=== PATIENT | female | born 1955 | race Caucasian/White ===

== ENCOUNTER 2017-07-27 12:43 | Observation (INO) | payer MEDICAID ==
--- NOTE | 2017-07-23 19:49 | HP ---
CC: Dr. Oleg Dixon; Dr. Diann Briggs * ADMISSION HISTORY AND PHYSICAL: DATE OF ADMISSION: Will be 07/27/17 ATTENDING SURGEON: Dr. Pamela Hawkins * (DICTATED BY EDIN PETERSEN) CHIEF COMPLAINT: Left breast pain; history of right breast cancer. HISTORY OF PRESENT ILLNESS: This is a 62-year-old patient who underwent right mastectomy with sentinel lymph node biopsy in [address] Hawkins following a lumpectomy for an ER/AZ positive, HER2/ella negative right breast cancer (no residual invasive carcinoma seen on mastectomy specimen and a single sentinel lymph node was negative for metastatic disease). The patient did not require any adjuvant therapy other than hormonal, which she currently continues ( anastrozole as directed by Dr. Dixon). The patient states that over the last 6 months, she has experienced pain in the left breast. This occurs in 2 forms. First, she experiences pain in a more or less ongoing basis in the area of the left inframammary fold. She describes this as a burning sensation, which is present most of the time. 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 This will occur 3 to 4 times weekly and has remained approximately the same in terms of frequency and intensity over the last 6 months. She did undergo mammogram and ultrasound of the left breast on 06/26/17 showing tiny microcalcifications in the left breast, a biopsy clip and a tiny inframammary lymph node. There were no concerns in terms of suspicious changes. The patient has not noticed any other changes in the left breast, i.e. , skin or nipple changes, nipple discharge, or lumps. The patient was seen in the office by Dr. Hawkins on 07/17/17 at which time exam was notable for surgical absence of the right breast without any evidence of recurrence. Left breast was without any skin or nipple changes or palpable lumps. There is no palpable cervical, supraclavicular, or axillary lymphadenopathy. The patient also told Dr. Hawkins that if she had considered the option 2 years ago, she would have undergone bilateral mastectomy at that time. There is a positive family history of breast cancer in her mother diagnosed at age 35 and treated with mastectomy. Her mother is still living at age 89. There is no additional family history of breast or ovarian cancer. There has not been any genetic testing as far as the patient is aware. Dr. Hawkins discussed surgical options with the patient including the indications, risks, benefits, and alternatives. The patient's right mastectomy in 2014 was complicated by postoperative wound infection and nonhealing wound requiring hyperbaric oxygen therapy. The patient understands all of these issues and would like to proceed as scheduled with left mastectomy. Dr. Hawkins did discuss possible reconstruction options with the patient. She is not interested in reconstruction at the present time. PAST MEDICAL HISTORY: Obesity, GERD, breast cancer as noted above (neuropathic pain related to right mastectomy, well controlled at present with gabapentin), joint pains (which she attributes to the anastrozole). PAST SURGICAL HISTORY: Previous surgeries include right mastectomy, prior left breast biopsy for benign disease in 2011, 2 right eye surgeries when she was younger, lumbar laminectomy, laparoscopic cholecystectomy, and tubal ligation. No reported surgical or anesthesia problems other than noted above. CURRENT MEDICATIONS: 1. Anastrozole 1 mg once daily. 2. Gabapentin 100 mg b.i.d. 3. Omeprazole 40 mg daily. 4. Naproxen 220 mg b.i.d. p.r.n. for joint pain (does not use daily). 5. Multivitamin once daily. DRUG ALLERGIES: None known (the patient does have history of severe reaction to most adhesive tapes). FAMILY HISTORY: Positive for breast cancer in her mother as noted above. Father at age 70 with history of lung and stomach cancer. One sister living with history of colon cancer. No family history of anesthesia problems, bleeding, or clotting disorders. SOCIAL HISTORY: The patient currently has 2 grandchildren who live with her. She is accompanied by her friend today. She works 2 days a week as a hair or beauty salon manager. She is a lifetime nonsmoker and drinks on average 2 to 3 drinks per week. She denies any other drug use. REVIEW OF SYSTEMS: General: No recent constitutional symptoms or acute illnesses. She has gained approximately 45 pounds over the past 2 years since her mastectomy. She attributes this to the anastrozole. Cardiovascular: No history of hypertension, MT, or angina. She was evaluated by Dr. Currie approximately 2 years ago with no findings of active heart disease other than deconditioning. Respiratory: No history of asthma, chronic cough, or shortness of breath. GI: GERD symptoms well controlled with omeprazole. No lower GI symptoms. Last colonoscopy approximately 5 years ago and the patient believes she is due for routine screening in another year with no interval problems reported. : No problems reported. HOSE HANDLER: Pap smear and pelvic exam done this past month. No problems reported. Endocrine: No diabetes or thyroid dysfunction. Musculoskeletal: Multiple joint complaints, which she relates to the anastrozole and for which she uses naproxen p.r.n., but not daily. PHYSICAL EXAMINATION GENERAL: Well-nourished, obese female, in no acute distress. VITAL SIGNS: Height 5 feet 5 inches, weight 245 pounds by history, temperature 97.9, blood pressure 122/82, pulse 68, respirations 16. HEENT: Pupils equal, round, and reactive. EOMs intact. No conjunctival pallor. Oropharynx: Teeth in good repair. No intraoral lesions. NECK: No lymphadenopathy in the cervical or supraclavicular regions. LUNGS: Clear to auscultation. No rales or wheezes. HEART: Regular rate and rhythm. No murmur noted. BREASTS: (Per Dr. Hawkins's exam not repeated today). ABDOMEN: Soft, nontender to palpation. No palpable masses or organomegaly. BACK: No spinous process or CVA tenderness. RECTAL: Not done. GENITALIA: Not done. EXTREMITIES: No edema. NEUROLOGICAL: Grossly intact. SKIN: Warm and dry. No suspicious rashes or lesions. IMPRESSION: Left breast pain and personal history of right breast cancer. PLAN: Left mastectomy. EDIN PETERSEN [id number]/[facility] #: [id number] [facility] MEDICAL CENTERMaikol
[~2017-07-27 12:43] MED LIST: Buffered Lidocaine 0.9% SYRIN* 5 ML/SYR SYRINGE INTRADERM ONE; DiMENhydriNATE IV* 50 MG/ML VIAL IV PUSH PRN; Famotidine IV* 10 MG/ML 2 ML (20 mg) IV ONE; Morphine INJ* 2 MG/ML 1 ML CARPUJECT IV PRN; Ondansetron INJ* 2 MG/ML VIAL IV PRN; PROCHLORPERAZINE INJ 5 MG/ML 2 ML VIAL IV PRN; Scopolamine 1.5 mg* PATCH TRANSDERM PRN; fentaNYL* 50 MCG/ML 2 ML VIAL (100 MCG VIAL) IV PRN; oxyCODONE/Acetamin 5/325 MG* TAB PO PRN
[2017-07-27] MEDS ORDERED: Buffered Lidocaine 0.9% SYRIN* 5 ML/SYR SYRINGE ONE ×2 (12:51)
[2017-07-27] MEDS ORDERED: Famotidine IV* 10 MG/ML 2 ML (20 mg) ONE ×2 (12:52)
[2017-07-27] MEDS ORDERED: ceFAZolin 2 GM PREMIX (*) 2 GM/50 ML BAG IVPB ONE ×2 (12:52)
[2017-07-27] MEDS ORDERED: fentaNYL* 50 MCG/ML 2 ML VIAL (100 MCG VIAL) ONE ×2 (13:45)
[2017-07-27] MEDS ORDERED: KETAMINE HCL* 50 MG/ML 10 ML VIAL ONE ×2 (13:46)
[2017-07-27] MEDS ORDERED: Midazolam* 1 MG/ML 10 ML VIAL (10 MG) ONE ×2 (13:46)
--- OUTSIDE RECORDS SUMMARY | 2017-07-27 13:54 | XMS REPORT ---
:1955 External Reference #:[id number] Author Organization [employer] Address [address] [facility] [address] [place] [address] Phone [phone] Care Team Providers Name Role Phone Mealnie Briggs DO Primary Care Physician Unavailable Payers Type Date Identification Numbers Payment Provider Subscriber Medicaid Policy Number: [id number] Medicaid Deloris Perez Group Name: 1 1 [address] PayID: [id number] [place] [address] Problems Description No Information Family History Date Family Member(s) Problem(s) Comments General Heart Disease mother General Breast Cancer mother General Seizure Disorder mother General Stomach Cancer father Father Stomach Cancer Father due to Cancer () - 1986 at age 70 Mother Heart Disease Mother Hypothyroidism Not sure if it is hyperthyroidism or hypothyroidism Mother Stroke Mother Breast Cancer Siblings Many 4 brothers, 1 brother had open heart surgery 1 sister had colon cancer 2 years ago All 5 siblings have hypertension Social History Type Date Description Comments Marital Status Single Lives With Family 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 NO Do you have problems with snoring, day time fatigue? Tired a lot since breast surgery Allergies, Adverse Reactions, Alerts Date Description Reaction Status Severity Comments 12/23/2015 NKDA active Medications Medication Date Status Form Strength Qnty SIG Indications Ordering Provider Naproxen 03/08/ Active Tablets 500mg 60tabs 1 by mouth M25.561 2016 twice a day F as needed Timi, pain MD Diclofenac / Active Tablets DR 50mg take one Unknown Sodium 0000 tablet by mouth twice a day as needed Omeprazole / Active Capsules 20mg 1 by mouth Unknown 0000 DR every day Multi / Active Capsules daily Unknown Complete 0000 Anastrozole 00/ Active Tablets 1mg 1 by mouth Unknown 0000 every day Naproxen / Active Tablets 500mg 1 tablet with Unknown 0000 food by mouth twice a day Gabapentin / Active Capsules 100mg take 1 Unknown 0000 capsule by mouth at night for 1 week then 1 by mouth twice daily ongoing Vitamin E / Hx Capsules 100Unit occasionally Unknown 0000 - 2015 Vitamin B-12 / Hx Tablets 1000mcg 1 by mouth Unknown 0000 - every day 2015 Tramadol HCL / Hx Tablets 50mg 1-2 tablets Unknown 0000 - every 6 hours 08/08/ as needed 2016 Medications Administered in Office Medication Date Status Form Strength Qnty SIG Indications Ordering Provider Depomedrol Administered Injection Omar F 40MG 017 MD Timi Depomedrol Administered Injection Francis Jimenes, 40MG 016 M.D. Vital Signs Date Vital Result Comment 07/23/2017 Heart Rate 68 /min BP Systolic 122 mmHg BP Diastolic 82 mmHg Respiratory Rate 16 /min Body Temperature 97.9 F 07/17/2017 Weight 245.00 lb Heart Rate 72 /min BP Systolic 134 mmHg BP Diastolic 80 mmHg Respiratory Rate 16 /min Body Temperature 97.7 F 03/08/2017 Height 65 inches 5'5" Weight 245.00 lb BP Systolic 136 mmHg BP Diastolic 83 mmHg Respiratory Rate 16 /min Pain Level 7 BMI (Body Mass Index) 40.8 kg/m2 06/23/2016 Height 65 inches 5'5" Weight 242.00 lb with shoes Heart Rate 62 /min BP Systolic Sitting 118 mmHg left arm, large cuff BP Diastolic Sitting 80 mmHg left arm, large cuff BP Systolic Standing 116 mmHg left arm, large cuff BP Diastolic Standing 80 mmHg left arm, large cuff Respiratory Rate 16 /min BMI (Body Mass Index) 40.3 kg/m2 Ejection Fraction 60-65% 06/13/16 06/06/2016 Height 65 inches 5'5" Weight 236.50 lb with flip flops Heart Rate 78 /min BP Systolic Sitting 128 mmHg LA lrg cuff BP Diastolic Sitting 70 mmHg LA lrg cuff BP Systolic Standing 126 mmHg LA lrg cuff BP Diastolic Standing 72 mmHg LA lrg cuff Respiratory Rate 16 /min BMI (Body Mass Index) 39.4 kg/m2 01/12/2016 Height 65 inches 5'5" Weight 226.00 lb Heart Rate 66 /min BP Systolic 119 mmHg BP Diastolic 69 mmHg BMI (Body Mass Index) 37.6 kg/m2 12/23/2015 Height 65 inches 5'5" Weight 226.00 lb Pain Level 10 BMI (Body Mass Index) 37.6 kg/m2 Results Description No Information Procedures Date CPT Code Description Status 06/26/2017 Mammogram Completed 06/26/2017 Bone Mineral Density Test Completed 03/08/201783255 Inject/Drain Joint/Bursa Major Completed 06/15/2016 38600 Stress ECHO Interpretation/Report Hospital Completed 06/15/2016 97413 Treadmill Interp/Report Only Completed 06/15/2016 39523 Stress Test Supervsn W/Out I/R Completed 06/13/2016 80642 ECHO Transthoracic, Real-Time 2D With Doppler And Color Completed Flow 06/06/2016 91149 EKG Tracing & Interpretation Completed 12/23/2015 78679 Inject/Drain Joint/Bursa Major Completed 09/01/2015 09147 Hyperbaric Oxygen Therapy By Physician Completed 08/31/2015 85029 Hyperbaric Oxygen Therapy By Physician Completed 08/26/2015 51712 Hyperbaric Oxygen Therapy By Physician Completed 08/18/2015 67848 Hyperbaric Oxygen Therapy By Physician Completed 08/17/2015 82163 Debridement Skin,& sq Tissue Completed 08/17/2015 01357 Hyperbaric Oxygen Therapy By Physician Completed 08/16/2015 97468 Hyperbaric Oxygen Therapy By Physician Completed 08/12/2015 01619 Hyperbaric Oxygen Therapy By Physician Completed 08/11/2015 28451 Hyperbaric Oxygen Therapy By Physician Completed 08/10/2015 28585 Hyperbaric Oxygen Therapy By Physician Completed 08/05/2015 86838 Hyperbaric Oxygen Therapy By Physician Completed 08/05/2015 32080 Debridement Skin,& sq Tissue Completed 08/04/2015 62951 Hyperbaric Oxygen Therapy By Physician Completed 08/03/2015 84034 Hyperbaric Oxygen Therapy By Physician Completed 08/02/2015 91546 Hyperbaric Oxygen Therapy By Physician Completed 07/28/2015 99869 Debridement Skin,& sq Tissue Completed 07/21/2015 29473 Debridement Skin,& sq Tissue Completed 07/14/2015 52723 Debridement Skin,& sq Tissue Completed 06/18/2015 27129 Mastectomy Simple Complete Completed Encounters Type Date Location Provider CPT E/M Dx Office Visit 03/08/2017 [facility] Omar Capellan, 70090 M25.561 1:00p Of Viridiana RICARDO Office Visit 06/28/2016 [facility] Of Oleg Dixon M.D. 58630 Z85.3 9:00a [facility] [place] Z90.11 Z08 Office Visit 06/23/2016 9:00a [facility] Of Brenda Currie M.D. 30228 R06.02 [facility] C50.911 Z82.49 Office Visit 06/06/2016 2:00p [facility] Of Brenda Currie M.D. 00770 R06.02 [facility] Z82.49 R94.31 Office Visit 05/17/2016 9:00a [facility] Of Oleg Dixno M.D. 26356 Z90.11 [facility] [place] Z85.3 Z08 R06.02 Office Visit 01/12/2016 9:45a [facility] Of Francis Jimenes M.D. 72684 M65.811 C.M.A. Office Visit 12/23/2015 1:00p [facility] Of Francis Jimenes M.D. 28053 M65.811 C.M.A. M75.51 M75.21 Office Visit 09/08/2015 2:57p Wound Care Dameon Fiore 05278 T86.821 CummingsAlivia Medina M.D. Office Visit 08/31/2015 8:28a [facility] Dameon Fiore 88044 T86.821 Ariel Medina Z85.3 T81.30xA Office Visit 07/07/2015 4:07p [facility]on Fiore 32983 T81.30xA CummingsAlivia Medina M.D. Plan of Care Future Appointment(s):07/27/2017 2:00 pm - Bahgat Jael, PA at [facility]07/27/2017 2:00 pm - Pamela Hawkins MD at [facility]07/23/2017 - Glenroy Johnston, PAN64.4 EhmngqkpiqM87.3 Personal history of malignant neoplasm of safdimN73.818 Encounter for other preprocedural examination
--- OUTSIDE RECORDS SUMMARY | 2017-07-27 13:55 | XMS REPORT ---
:1955 External Reference #:[id number] Author Organization [employer] Address [address] 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 Vital Signs Date Vital Result Comment 07/17/2017 Weight 245.00 lb Heart Rate 72 [...] Completed 06/26/2017 Bone Mineral Density Test Completed 03/08/201758096 Inject/Drain Joint/Bursa Major Completed 06/15/2016 39872 Stress ECHO Interpretation/Report Hospital Completed 06/15/2016 25455 Treadmill Interp/Report Only Completed 06/15/2016 02226 Stress Test Supervsn W/Out I/R Completed 06/13/2016 38646 ECHO Transthoracic, Real-Time 2D With Doppler And Color Completed Flow 06/06/2016 41726 EKG Tracing & Interpretation Completed 12/23/201511129 Inject/Drain Joint/Bursa Major Completed 09/01/2015 19951 Hyperbaric Oxygen Therapy By Physician Completed 08/31/2015 34382 Hyperbaric Oxygen Therapy By Physician Completed 08/26/2015 24410 Hyperbaric Oxygen Therapy By Physician Completed 08/18/2015 15049 Hyperbaric Oxygen Therapy By Physician Completed 08/17/2015 32464 Debridement Skin,& sq Tissue Completed 08/17/2015 87407 Hyperbaric Oxygen Therapy By Physician Completed 08/16/2015 13732 Hyperbaric Oxygen Therapy By Physician Completed 08/12/2015 18325 Hyperbaric Oxygen Therapy By Physician Completed 08/11/2015 41257 Hyperbaric Oxygen Therapy By Physician Completed 08/10/2015 55785 Hyperbaric Oxygen Therapy By Physician Completed 08/05/2015 57414 Hyperbaric Oxygen Therapy By Physician Completed 08/05/2015 19430 Debridement Skin,& sq Tissue Completed 08/04/2015 52675 Hyperbaric Oxygen Therapy By Physician Completed 08/03/2015 55188 Hyperbaric Oxygen Therapy By Physician Completed 08/02/2015 15722 Hyperbaric Oxygen Therapy By Physician Completed 07/28/2015 40625 Debridement Skin,& sq Tissue Completed 07/21/2015 68435 Debridement Skin,& sq Tissue Completed 07/14/2015 58182 Debridement Skin,& sq Tissue Completed 06/18/2015 34262 Mastectomy Simple Complete Completed Encounters Type Date Location Provider CPT E/M Dx Office Visit 03/08/2017 [facility] Omar Capellan, 11846 M25.561 1:00p Of Viridiana RICARDO Office Visit 06/28/2016 [facility] Oleg Dixon M.D. 33630 Z85.3 9:00a [facility] Operations Specialist [facility] [place] Z90.11 Z08 Office Visit 06/23/2016 9:00a [facility] Of Brenda Currie M.D. 36170 R06.02 [facility] At [facility] C50.911 Z82.49 Office Visit 06/06/2016 2:00p [facility] Of Brenda Currie M.D. 22851 R06.02 [facility] Z82.49 R94.31 Office Visit 05/17/2016 9:00a [facility] Of Oleg Dixon M.D. 10853 Z90.11 [facility] [place] Z85.3 Z08 R06.02 Office Visit 01/12/2016 9:45a [facility] Of Francis Jimenes M.D. 55327 M65.811 C.M.A. Office Visit 12/23/2015 1:00p [facility] Of Francis Jimenes M.D. 27895 M65.811 C.M.A. M75.51 M75.21 Office Visit 09/08/2015 2:57p Wound Care Dameon Fiore 49218 T86.821 Hardwick-Mele Medina M.D. Office Visit 08/31/2015 8:28a [facility] At [facility] Dameon Fiore 55138 T86.821 Ariel Medina Z85.3 T81.30xA Office Visit 07/07/2015 4:07p [facility]ound Care Dameon Fiore 23142 T81.30xA Hardwick-Mele Medina M.D. Plan of Care Future Appointment(s):07/23/2017 10:00 am - EDIN Campbell at [facility]07/27/2017 2:00 pm - EDIN Carias at [facility]07/27/2017 2:00 pm - Pamela Hawkins MD at [facility]07/17/2017 - Pamela Hawkins MDN64.4 MastodyniaFollow up:for H &P and post op.
[2017-07-27] MEDS ORDERED: Bupivacaine 0.25% SDV* 30 ML ONE ×2 (14:12)
[2017-07-27] MEDS ORDERED: Ondansetron INJ* 2 MG/ML VIAL ONE ×2 (14:50)
[2017-07-27] MEDS ORDERED: Lidocaine 2% PF * 5 ML VIAL ONE ×4 (14:50→16:05)
[2017-07-27] MEDS ORDERED: Morphine INJ* 10 MG/ML 1 ML CARPUJECT ONE ×2 (14:50)
[2017-07-27] MEDS ORDERED: Ketorolac INJ* 30 MG/ML 1 ML VIAL ONE (14:50)
[2017-07-27] MEDS ORDERED: Propofol* 10 MG/ML 20 ML BTL IV PUSH ONE ×2 (14:50)
[2017-07-27] MEDS ORDERED: Dexamethasone IV* 4 MG/ML 1 ML (4 MG) ONE ×2 (14:50)
--- NOTE | 2017-07-27 16:21 | SURGPN ---
Brief Operative Note - Surgery Procedures: 07/27/17 Op Note Pre-op dx: left breast pain Post-op dx: same Procedure: left mastectomy Surgeon: Ross Asst: Jael Johnston Anesth: general EBL: 100 cc Complications: none SCDs on during surgery Abx: given pre-op Pt. tolerated procedure well and was transferred to in a stable condition. CLFoster
[2017-07-27] MEDS ORDERED: Acetaminophen TAB* 325 MG PO PRN (16:27)
[2017-07-27] MEDS ORDERED: traMADol TAB* 50 MG PO ONE (16:27)
[2017-07-27] MEDS ORDERED: Morphine INJ* 10 MG/ML 1 ML CARPUJECT IV PRN (16:28)
[2017-07-27] MEDS ORDERED: Morphine INJ* 4 MG/ML 1 ML CARPUJECT IV PRN (16:28)
[2017-07-27] MEDS ORDERED: Ondansetron INJ* 2 MG/ML VIAL IV PRN (16:31)
[2017-07-27] MEDS ORDERED: Gabapentin CAP(*) 100 MG PO ONE (21:00)
[2017-07-27] MEDS ORDERED: traMADol TAB* 50 MG ONE ×2 (21:22)
[2017-07-27] MEDS: traMADol TAB* 50 MG PO PRN (21:30)
[2017-07-28] MEDS: Gabapentin CAP(*) 100 MG PO SCH ×2 (00:14→09:18)
[2017-07-28] MEDS: traMADol TAB* 50 MG PO PRN (05:25)
[2017-07-28] MEDS ORDERED: Omeprazole CAP* 20 MG PO ONE (07:30)
[2017-07-28] MEDS ORDERED: Omeprazole CAP* 20 MG PO SCH (07:30)
[2017-07-28 07:40] VITALS: BP 122/46
--- NOTE | 2017-07-28 08:05 | PN ---
Progress Note - Progress Note Date of Service: 07/28/17 Note: Surgery Ms. Perez reports she has some pain with movement, but otherwise denies problems. She notes the incision is numb. Vital Signs 07/27/17 07/27/17 07/27/17 13:05 16:18 16:20 Temperature 97.7 F 97.2 F Pulse Rate 65 84 65 Respiratory 16 8 12 Rate Blood Pressure 127/68 144/67 134/79 (mmHg) O2 Sat by Pulse 98 95 100 Oximetry 07/27/17 07/27/17 07/27/17 16:25 16:30 16:45 Temperature Pulse Rate 66 65 64 Respiratory 14 14 12 Rate Blood Pressure 125/62 142/70 119/69 (mmHg) O2 Sat by Pulse 100 100 100 Oximetry 07/27/17 07/27/17 07/27/17 17:00 17:15 17:30 Temperature Pulse Rate 63 59 60 Respiratory 12 11 12 Rate Blood Pressure 123/77 116/74 115/58 (mmHg) O2 Sat by Pulse 100 100 100 Oximetry 07/27/17 07/27/17 07/27/17 17:45 18:00 18:34 Temperature Pulse Rate 60 58 Respiratory 12 12 16 Rate Blood Pressure 108/61 122/68 (mmHg) O2 Sat by Pulse 100 100 Oximetry 07/27/17 07/27/17 07/27/17 18:39 19:36 20:32 Temperature 97.3 F 98.2 F 98.2 F Pulse Rate 61 65 69 Respiratory 16 18 16 Rate Blood Pressure 139/64 132/66 133/53 (mmHg) O2 Sat by Pulse 99 97 97 Oximetry 07/27/17 07/27/17 07/27/17 21:30 21:51 22:32 Temperature 97.9 F Pulse Rate 65 Respiratory 18 18 16 Rate Blood Pressure 116/55 (mmHg) O2 Sat by Pulse 95 Oximetry 07/28/17 07/28/17 07/28/17 00:14 00:15 00:18 Temperature 97.8 F Pulse Rate 75 Respiratory 18 16 16 Rate Blood Pressure 117/52 (mmHg) O2 Sat by Pulse 97 Oximetry 07/28/17 07/28/17 07/28/17 03:13 03:56 05:25 Temperature 97.4 F Pulse Rate 69 Respiratory 18 18 18 Rate Blood Pressure 117/54 (mmHg) O2 Sat by Pulse 97 Oximetry 07/28/17 07/28/17 07:16 07:18 Temperature 98.2 F Pulse Rate 58 Respiratory 16 16 Rate Blood Pressure 122/46 (mmHg) O2 Sat by Pulse 96 Oximetry Mastectomy site: clean and dry, no signs infection; flaps viable, small, 1 cm, area in mid incision region which is dusky. MORGAN: 75/55 cc bloody fluid. Intake & Output 07/27/17 07/28/17 07/28/17 22:59 06:59 14:59 Intake Total 2575 1300 Output Total 775 1255 Balance 1800 45 Intake: IV Fluids 2049 940 LR 1999 940 NS 50ML, Cefazolin 2G 50 Oral 525 360 Output: MORGAN #1 75 55 Urine 700 1200 POD#1 s/p left mastectomy, doing well. Can go home if tolerates breakfast.
--- NOTE | 2017-07-28 13:51 | OP ---
CC: Dr. Melanie Briggs * DATE OF OPERATION: 07/27/17 - ROOM #340 DATE OF : 53 SURGEON: Pamela Hawkins MD. ASSISTANTS: EDIN Bates and EDIN Carias PRE-OP DIAGNOSIS: Left breast pain. POST-OP DIAGNOSIS: Left breast pain. OPERATIVE PROCEDURE: Left mastectomy. INDICATIONS: Ms. Perez is a 62-year-old woman who has a history of right breast cancer having undergone a right mastectomy in the past who developed left breast pain prompting the plan for her to seek left mastectomy as well. DESCRIPTION OF PROCEDURE: On the day of surgery, she was brought to the operating room, placed on the OR table in the supine position, and given general anesthesia. The left chest was prepped and draped in the usual sterile fashion. An incision was made in the superior breast encompassing the nipple- areolar complex and the subcutaneous tissue was divided with electrocautery superiorly to the clavicle, medially to the sternum, laterally to the latissimus dorsi muscle done inferiorly. An incision was made encompassing the nipple-areolar complex as well and then subcutaneous tissue was divided with electrocautery medially to the sternum, anteriorly to the rectus muscle and laterally to the latissimus dorsi muscle. The breast was then elevated off the chest wall using electrocautery. The vessels that were encountered were either ligated or cauterized. Once the breast was off the chest wall, it was marked in the usual fashion and handed off as a specimen. Hemostasis was assured and then additional skin was taken to allow the scar to lie flat against the chest wall as possible. A MORGAN drain was inserted through the stab wound in the skin and the anterior axillary line and secured to the chest wall with 3-0 Prolene stitch. The wound was closed with 2-0 Vicryl interrupted stitches in the subcutaneous tissue and the skin was closed with 3-0 Prolene running stitches. A dry, fluffy dressing was then applied. All sponge and instrument counts were correct. It should be mentioned that upon completion of closing prior to placing the dressing, local anesthetic was instilled into the wound through the MORGAN drain. The patient tolerated the procedure well and was transferred to Recovery in a stable condition. [id number]/[facility] #: [id number] [facility]
[2017-07-30] MEDS ORDERED: Scopolamine PATCH Remove* 1 NOTE MISC PATCH OFF ONE (06:55)
== END 2017-07-28 11:05 | disposition home or self-care (01) ==
LOC: INTOOBSV 12:43 → AA 12:43 → SSU 18:23
PROVIDERS: ADMIT Surgery; ATTEND Surgery
PROC: 07T Lymphatic and Hemic Systems, Resection (ICD-10-PCS; 2017-07-27)
PROC: 0HTU0ZZ Resection of Left Breast, Open Approach (ICD-10-PCS; principal; 2017-07-27 14:30)
DX: N64.4 Mastodynia (principal); Z85.3 Personal history of malignant neoplasm of breast; K21.9 Gastro-esophageal reflux disease without esophagitis; E66.9 Obesity, unspecified; Z79.899 Other long term (current) drug therapy
CPT/HCPCS: 88307; A9270-GY; G0378; J0690; J1100; J1885; J2250; J2270; J2405; J2704; J3010

== ENCOUNTER 2017-08-03 20:29 | Inpatient (IN) | payer MEDICAID ==
[2017-08-03 22:36] LABS: Hematocrit 42 % (35-47); Mean Corpuscular HGB Conc 34 g/dl (31-36); Mean Corpuscular Hemoglobin 30 pg (27-31); Mean Corpuscular Volume 88 fL (80-97); Mean Platelet Volume 8 um3 (7.4-10.4); Red Blood Count 4.76 10^6/ul (4.0-5.4); Red Cell Distribution Width 13 % (10.5-15); White Blood Count 18.5 10^3/ul (3.5-10.8)
[2017-08-03 22:51] LABS: Albumin 3.9 g/dL (3.2-5.2); BUN/Creatinine Ratio 19.2 (8-20); EGFR African American 103.6 (>60); EGFR Non-African American 80.5 (>60); Globulin 3.5 g/dL (2-4); Total Bilirubin 0.4 mg/dL (0.2-1.0); Total Protein 7.4 g/dL (6.4-8.9)
[2017-08-03 22:59] LABS: Potassium 4.2 mmol/L (3.5-5.0)
[2017-08-04] MEDS ORDERED: NS 0.9% 1000 ML* 1,000 ML IV SCH
[2017-08-04] MEDS ORDERED: Vancomycin(*) 1,500 MG in NS 0.9% 250 ML* 250 ML IVPB ONE (01:51)
[2017-08-04] MEDS ORDERED: CMCS: Melatonin (NF) 3 MG TAB PO PRN (01:58)
[2017-08-04] MEDS ORDERED: oxyCODONE TAB* 5 MG TAB PO PRN (01:58)
[2017-08-04] MEDS ORDERED: traMADol TAB* 50 MG PO PRN (01:58)
[2017-08-04] MEDS ORDERED: Ondansetron INJ* 2 MG/ML VIAL IV PRN (01:58)
--- NOTE | 2017-08-04 02:41 | ED ---
Ruddy Tellez Stephanie, scribed for Josef Franco MD on 08/03/17 at 2250 . HPI Febrile Illness - HPI Summary HPI Summary: Pt is a 62 y/o F with c/o fever since earlier today. She reports having a mastectomy 1 week ago. Symptoms include chills, fever, pain in lower extremities , erythema and discharge of L breast. She reports prior mastectomy of R breast 2 years ago and acquired an infection post-op. The pt denies cough, SOB, dysuria , bowel symptoms, pain with palpitation of chest, and pain with ambulation. She reports less than usual drainage from operative site within the past day. - History of Current Complaint Chief Complaint: EDFever Hx Obtained From: Patient Onset/Duration: Started Hours Ago, Still Present Timing: Constant Pain Intensity: 7 Pain Scale Used: 0-10 Numeric Aggravating Factors: Nothing Alleviating Factors: Nothing Associated Signs and Symptoms: Chills, Other: - Positive: Pain in lower extremities, erythema and discharge of L breast. - Allergy/Home Medications Allergies/Adverse Reactions: Allergies Allergy/AdvReac Type Severity Reaction Status Date / Time Adhesive Tape Allergy skin Verified 08/04/17 00:50 tears, rash, blisters STERI STRIPS AdvReac RASH, Uncoded 07/27/17 13:08 BLISTERS PMH/Surg Hx/FS Hx/Imm Hx Previously Healthy: No Endocrine/Hematology History: Denies: Hx Diabetes Cardiovascular History: Denies: Hx Angina, Hx Coronary Artery Disease, Hx Hypercholesterolemia, Hx Hypertension, Hx Myocardial Infarction, Hx Valvular Heart Disease Respiratory History: Denies: Hx Asthma, Hx Chronic Obstructive Pulmonary Disease (COPD) Musculoskeletal History: Reports: Other Musculoskeletal History - BACK SURGERY WHILE IN HER 20'S FOR A PINCHED NERVE Denies: Hx Osteoporosis Sensory History: Reports: Hx Contacts or Glasses - READER Denies: Hx Hearing Aid Opthamlomology History: Reports: Hx Contacts or Glasses - READER - Surgical History Surgery Procedure, Year, and Place: BACK SURGERY 1986. GALLBLADDER, 2011. C SECTION 1980. EYE SURGERY AGE 4 AND 15. BREAST CA Hx Anesthesia Reactions: No Infectious Disease History: No Infectious Disease History: Denies: Traveled Outside the [place] in Last 30 Days - Social History Alcohol Use: Occasionally Alcohol Amount: 2 PER WEEK Hx Substance Use: No Substance Use Type: Reports: None Hx Tobacco Use: No Smoking Status (MU): Never Smoked Tobacco Have You Smoked in the Last Year: No Review of Systems Positive: Fever, Chills Positive: Other - Denies: Pain with palpitation of chest, and pain with ambulation. Negative: Shortness Of Breath, Cough Positive: Other - Negative: Bowel symptoms. Negative: dysuria Positive: Other - Positive: Pain in lower extremities, erythema and discharge of L breast. All Other Systems Reviewed And Are Negative: Yes Physical Exam - Summary Physical Exam Summary: Appearance: Well-appearing, Well-nourished Skin: Warm, Dry, No rash. The left breast is healing from mastectomy with minimal redness along suture line. Drain in place has serosanguinous fluid. Has nothing in the axilla. Eyes: Normal, PERRL, EOMI, sclera anicteric ENT: Normal Neck: Supple, nontender Respiratory: Clear to auscultation Cardiovascular: S1, S2, no murmur, no rub, no gallop Abdomen: Soft, nontender, no organomegaly Bowel sounds: Present Musculoskeletal: Normal, Strength/ROM Intact, pulses symmetrical. No obvious edema of R thigh, no palpable chord. Neurological: Normal, A&Ox3, cranial nerves II-XII WNL, follows commands, gait not tested, sensation intact to pin and light touch Psychiatric: affect normal, behavior appropriate, dressed appropriately, judgment intact Triage Information Reviewed: Yes Vital Signs On Initial Exam: Initial Vitals Temp Pulse Resp BP Pulse Ox 101 F 108 18 124/80 100 08/03/17 20:35 08/03/17 20:35 08/03/17 20:35 08/03/17 20:35 08/03/17 20:35 Vital Signs Reviewed: Yes - Tracy Coma Scale Coma Scale Total: 15 Diagnostics - Vital Signs Vital Signs Temp Pulse Resp BP Pulse Ox 08/03/17 20:35 101 F 108 18 124/80 100 - Laboratory Lab Results: Lab Results 08/03/17 Range/Units 22:15 WBC 18.5 H (3.5-10.8) 10^3/ul RBC 4.76 (4.0-5.4) 10^6/ul Hgb 14.0 (12.0-16.0) g/dl Hct 42 (35-47) % MCV 88 (80-97) fL MCH 30 (27-31) pg MCHC 34 (31-36) g/dl RDW 13 (10.5-15) % Plt Count 358 (150-450) 10^3/ul MPV 8 (7.4-10.4) um3 Neut % (Auto) 81.8 (38-83) % Lymph % (Auto) 8.0 L (25-47) % [place] % (Auto) 5.3 (1-9) % Eos % (Auto) 4.2 (0-6) % Baso % (Auto) 0.7 (0-2) % Absolute Neuts (auto) 15.1 H (1.5-7.7) 10^3/ul Absolute Lymphs (auto) 1.5 (1.0-4.8) 10^3/ul Absolute Monos (auto) 1.0 H (0-0.8) 10^3/ul Absolute Eos (auto) 0.8 H (0-0.6) 10^3/ul Absolute Basos (auto) 0.1 (0-0.2) 10^3/ul Absolute Nucleated RBC 0 10^3/ul Nucleated RBC % 0 Result Diagrams: 08/03/17 22:15 08/03/17 22:15 Lab Statement: Any lab studies that have been ordered have been reviewed, and results considered in the medical decision making process. - CT CXR CT Interpretation: No Acute Changes CT Interpretation Completed By: ED Physician - Nml - Ultrasound No standard instances Ultrasound Interpretation: Positive (See Comments) Ultrasound Interpretation Completed By: Radiologist - Surgically absent breasts. Mildly enlarged heart. Course/Dx - Course Course Of Treatment: Pt will be admitted into the hospital. ED physician has reviewed the patients medications. Assessment/Plan: start one dose of vancomycin - Diagnoses Provider Diagnoses: Post op infection, post-mastectomy infection Discharge - Discharge Plan Condition: Fair Disposition: ADMITTED TO [facility] Referrals: Melanie Briggs DO [Primary Care Provider] - The documentation as recorded by the Ruddy phelan Stephanie accurately reflects the service I personally performed and the decisions made by me, Josef Franco MD.
[2017-08-04 02:45] LABS: Urine Bacteria Absent (Absent); Urine Bilirubin Negative (Negative); Urine Glucose Negative (Negative); Urine Nitrite Negative (Negative)
[2017-08-04] MEDS ORDERED: Vancomycin per Pharmacy* NOTE FOLLOW UP SCH (03:00)
[2017-08-04] MEDS ORDERED: Acetaminophen TAB* 325 MG ONE (03:42)
[2017-08-04] MEDS: Acetaminophen TAB* 325 MG PO PRN ×2 (03:44→10:29)
[2017-08-04] MEDS: NS 0.9% 1000 ML* 1,000 ML IV SCH (04:16)
[2017-08-04] MEDS: ceFAZolin 1 GM in Dextrose (*) 1 GM/50 ML BAG IVPB SCH ×4 (04:23→22:15)
[2017-08-04 05:48] LABS: Hematocrit 39 % (35-47); Hemoglobin 12.8 g/dl (12.0-16.0); Mean Corpuscular HGB Conc 33 g/dl (31-36); Mean Corpuscular Hemoglobin 29 pg (27-31); Mean Corpuscular Volume 88 fL (80-97); Mean Platelet Volume 7 um3 (7.4-10.4); Red Cell Distribution Width 13 % (10.5-15); White Blood Count 16.2 10^3/ul (3.5-10.8)
[2017-08-04 05:58] LABS: BUN/Creatinine Ratio 19.2 (8-20); Calcium 8.6 mg/dL (8.6-10.3); EGFR African American 103.6 (>60); EGFR Non-African American 80.5 (>60); Potassium 3.9 mmol/L (3.5-5.0)
[2017-08-04] MEDS ORDERED: Omeprazole CAP* 20 MG PO SCH (06:00)
--- NOTE | 2017-08-04 08:07 | RAD ---
INDICATION: Cough. Post radiation to the LEFT breast last Sunday. Fever. COMPARISON: August 02, 2015 TECHNIQUE: Dual energy PA and routine lateral views of the chest were obtained. REPORT: Clear lungs and pleural spaces. LEFT epicardial fat pad noted. Upper normal heart size. Unremarkable central pulmonary vasculature and mediastinal contours. LEFT chest wall surgical drain. IMPRESSION: No evidence for pneumonia.
--- NOTE | 2017-08-04 08:08 | RAD ---
INDICATION: RIGHT lower extremity pain. Postop breast surgery. COMPARISON: No relevant prior exams available on the [facility] PACS for comparison. TECHNIQUE: Smith scale, color Doppler, and spectral analysis of the deep veins of the RIGHT lower extremity. Vessel compression, phasicity, and augmentation assessed. REPORT: The RIGHT common femoral, great saphenous, profunda femoral, femoral, popliteal, peroneal, and posterior tibial veins are patent. Patency of the LEFT common femoral vein documented. IMPRESSION: No evidence for RIGHT lower extremity deep venous thrombosis.
--- NOTE | 2017-08-04 08:18 | PN ---
Progress Note - Progress Note Date of Service: 08/04/17 Note: Surgery Ms. Perez reports she started to have chills last night and came in right away. She denies pain. She says the drain is still draining about 30cc per day. Vital Signs 08/03/17 08/04/17 08/04/17 20:35 03:21 03:59 Temperature 101 F 98.9 F Pulse Rate 108 79 Respiratory 18 16 16 Rate Blood Pressure 124/80 119/58 (mmHg) O2 Sat by Pulse 100 96 Oximetry 08/04/17 07:40 Temperature 98.4 F Pulse Rate 75 Respiratory 16 Rate Blood Pressure 132/63 (mmHg) O2 Sat by Pulse 98 Oximetry Mastectomy site is clean and dry with small patches of duskiness for a few mm along the incision. There is minimal redness laterally. There is expected tenderness. MORGAN fluid is serous. Laboratory Results - last 24 hr 08/03/17 08/03/17 08/04/17 22:15 22:15 00:00 WBC 18.5 H RBC 4.76 Hgb 14.0 Hct 42 MCV 88 MCH 30 MCHC 34 RDW 13 Plt Count 358 MPV 8 Neut % (Auto) 81.8 Lymph % (Auto) 8.0 L [place] % (Auto) 5.3 Eos % (Auto) 4.2 Baso % (Auto) 0.7 Absolute Neuts (auto) 15.1 H Absolute Lymphs (auto) 1.5 Absolute Monos (auto) 1.0 H Absolute Eos (auto) 0.8 H Absolute Basos (auto) 0.1 Absolute Nucleated RBC 0 Nucleated RBC % 0 INR (Anticoag Therapy) 1.06 H Sodium 132 L Potassium 4.2 Chloride 100 L Carbon Dioxide 22 Anion Gap 10 BUN 14 Creatinine 0.73 Est GFR ( Amer) 103.6 Est GFR (Non-Af Amer) 80.5 BUN/Creatinine Ratio 19.2 Glucose 125 H Calcium 9.0 Total Bilirubin 0.40 AST 19 ALT 16 Alkaline Phosphatase 75 Total Protein 7.4 Albumin 3.9 Globulin 3.5 Albumin/Globulin Ratio 1.1 Urine Color Urine Appearance Urine pH Ur Specific [place] Urine Protein Urine Ketones Urine Blood Urine Nitrate Urine Bilirubin Urine Urobilinogen Ur Leukocyte Esterase Urine WBC (Auto) Urine RBC (Auto) Ur Squamous Epith Cells Urine Bacteria Urine Glucose 08/04/17 08/04/17 08/04/17 02:20 05:27 05:27 WBC 16.2 H RBC 4.40 Hgb 12.8 Hct 39 MCV 88 MCH 29 MCHC 33 RDW 13 Plt Count 300 MPV 7 L Neut % (Auto) 77.0 Lymph % (Auto) 11.6 L [place] % (Auto) 6.1 Eos % (Auto) 4.8 Baso % (Auto) 0.5 Absolute Neuts (auto) 12.5 H Absolute Lymphs (auto) 1.9 Absolute Monos (auto) 1.0 H Absolute Eos (auto) 0.8 H Absolute Basos (auto) 0.1 Absolute Nucleated RBC 0 Nucleated RBC % 0 INR (Anticoag Therapy) Sodium 133 Potassium 3.9 Chloride 102 Carbon Dioxide 25 Anion Gap 6 BUN 14 Creatinine 0.73 Est GFR ( Amer) 103.6 Est GFR (Non-Af Amer) 80.5 BUN/Creatinine Ratio 19.2 Glucose 122 H Calcium 8.6 Total Bilirubin AST ALT Alkaline Phosphatase Total Protein Albumin Globulin Albumin/Globulin Ratio Urine Color Yellow Urine Appearance Clear Urine pH 6.0 Ur Specific [place] 1.014 Urine Protein Negative Urine Ketones Negative Urine Blood Negative Urine Nitrate Negative Urine Bilirubin Negative Urine Urobilinogen Negative Ur Leukocyte Esterase 1+ H Urine WBC (Auto) Trace(0-5/hpf) Urine RBC (Auto) Absent Ur Squamous Epith Cells Present H Urine Bacteria Absent Urine Glucose Negative A/P: POD#7 s/p left mastectomy with presumed wound infection, but no amy purulence. Will send fluid from MORGAN drain for C&S. Await culture results and defervescence and normalization of WBC. Continue abx. CLFoster
--- NOTE | 2017-08-04 09:43 | HP ---
H&P (Free Text) History and Physical: PCP: Carlos Briggs DO Surgery: Radha Hawkins MD Date/Time: 08/04/2017 0130 CC: fever HPI: Mrs Perez is a 62YO female HX breast CA remotely s/p R mastectomy complicated by op-site infection who underwent a L mastectomy Sunday one week ago reportedly for mastodynia, pathology pending. She presents for onset of fever, chills, & sweats 2 hours prior to arrival. There has been some nausea, but no vomiting. She has a MORGAN drain in place draining serosanguinous. She denies chest pain, SOB, or other issues. PMedHx R breast CA complicated by op-site infection & neuropathic pain GERD Ambulatory Orders Omeprazole CAP* [Prilosec CAP* 20 MG] 40 mg PO QAM 06/11/15 Anastrozole [Arimidex] 1 mg PO BEDTIME 06/14/16 Gabapentin CAP(*) [Neurontin 100 mg CAP(*)] 100 mg PO BID 07/23/17 Multiple Vitamin [One Daily] 1 tab PO DAILY 07/23/17 Naproxen Sodium [Naproxen Sodium 220 mg] 1 - 2 tab PO DAILY PRN 07/23/17 Acetaminophen TAB* [Tylenol TAB*] 650 mg PO Q4H PRN tab 07/27/17 traMADol TAB* [Ultram*] 50 mg PO Q6H PRN tab MDD 4 07/28/17 Allergies Adhesive Tape Allergy (Verified 08/04/17 00:50) skin tears, rash, blisters STERI STRIPS Adverse Reaction (Uncoded 07/27/17 13:08) RASH, BLISTERS PSurgHx OD surgery x2 R mastectomy L breast BX, benign laparoscopic cholecystectomy lumbar laminectomy tubal ligation SocHx: no tobacco, 2-3 alcoholic drinks weekly, no recreational drugs; lives with 2 grandchildren; 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; full 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 status FamHx: positive for breast CA, lung CA, gastric CA, colon CA ROS: as above, otherwise reviewed and all were negative vitals: Vital Signs Temp 36.9 C 08/04/17 07:40 Pulse 75 08/04/17 07:40 Resp 16 08/04/17 08:21 BP 132/63 08/04/17 07:40 Pulse Ox 98 08/04/17 07:40 Intake & Output 08/03/17 08/03/17 08/04/17 11:59 23:59 11:59 Intake Total 495 Output Total 300 Balance 195 Weight 111.13 kg 111.13 kg Intake: IV Fluids 245 ABX - VANCOMYCIN 245 Oral 250 Output: Urine 300 Constitutional: NAD, normally developed, morbidly obese white female HEENM: atraumatic; sclera/conjunctiva: anicteric/clear; hearing: clinically intact; oropharynx: clear, mucosa moist Neck: soft tissue: normal; thyroid: non-tender Pulmonary: clear to auscultation bilaterally, good aeration, no accessory muscle use CV: RR/RR, normal S1S2, no carotid bruit, no jugular venous distention, 2+ B DP/ PT, no edema Abdominal: soft, non-distended, non-tender, no rebound/guarding/rigidity, normoactive bowel sounds, no hepatosplenomegaly or masses, no costovertebral angle tenderness Musculoskeletal: general: grossly intact Integumental: B mastectomy with healing L incision noted for erythema at its lateral edge tracking superomedially across the chest to just shy of midline; no flocculence, induration, or warmth; the lateral end involved with induration expresses a scant amount of purulent material, CX sent Psychiatric orientation: AA&O to PPS affect: calm mood: cooperative eye contact: good content: reliable responses: timely insight: good Testing: Lab Results 08/03/17 08/03/17 08/04/17 Range/Units 22:15 22:15 00:00 WBC 18.5 H (3.5-10.8) 10^3/ul RBC 4.76 (4.0-5.4) 10^6/ul Hgb 14.0 (12.0-16.0) g/dl Hct 42 (35-47) % MCV 88 (80-97) fL MCH 30 (27-31) pg MCHC 34 (31-36) g/dl RDW 13 (10.5-15) % Plt Count 358 (150-450) 10^3/ul MPV 8 (7.4-10.4) um3 Neut % (Auto) 81.8 (38-83) % Lymph % (Auto) 8.0 L (25-47) % [place] % (Auto) 5.3 (1-9) % Eos % (Auto) 4.2 (0-6) % Baso % (Auto) 0.7 (0-2) % Absolute Neuts (auto) 15.1 H (1.5-7.7) 10^3/ul Absolute Lymphs (auto) 1.5 (1.0-4.8) 10^3/ul Absolute Monos (auto) 1.0 H (0-0.8) 10^3/ul Absolute Eos (auto) 0.8 H (0-0.6) 10^3/ul Absolute Basos (auto) 0.1 (0-0.2) 10^3/ul Absolute Nucleated RBC 0 10^3/ul Nucleated RBC % 0 INR (Anticoag Therapy) 1.06 H (0.77-1.02) Sodium 132 L (133-145) mmol/L Potassium 4.2 (3.5-5.0) mmol/L Chloride 100 L (101-111) mmol/L Carbon Dioxide 22 (22-32) mmol/L Anion Gap 10 (2-11) mmol/L BUN 14 (6-24) mg/dL Creatinine 0.73 (0.51-0.95) mg/dL Est GFR ( Amer) 103.6 (>60) Est GFR (Non-Af Amer) 80.5 (>60) BUN/Creatinine Ratio 19.2 (8-20) Glucose 125 H (70-100) mg/dL Calcium 9.0 (8.6-10.3) mg/dL Total Bilirubin 0.40 (0.2-1.0) mg/dL AST 19 (13-39) U/L ALT 16 (7-52) U/L Alkaline Phosphatase 75 (34-104) U/L Total Protein 7.4 (6.4-8.9) g/dL Albumin 3.9 (3.2-5.2) g/dL Globulin 3.5 (2-4) g/dL Albumin/Globulin Ratio 1.1 (1-3) Urine Color Urine Appearance Urine pH (5-9) Ur Specific [place] (1.010-1.030) Urine Protein (Negative) Urine Ketones (Negative) Urine Blood (Negative) Urine Nitrate (Negative) Urine Bilirubin (Negative) Urine Urobilinogen (Negative) Ur Leukocyte Esterase (Negative) Urine WBC (Auto) (Absent) Urine RBC (Auto) (Absent) Ur Squamous Epith Cells (Absent) Urine Bacteria (Absent) Urine Glucose (Negative) 08/04/17 08/04/17 08/04/17 Range/Units 02:20 05:27 05:27 WBC 16.2 H (3.5-10.8) 10^3/ul RBC 4.40 (4.0-5.4) 10^6/ul Hgb 12.8 (12.0-16.0) g/dl Hct 39 (35-47) % MCV 88 (80-97) fL MCH 29 (27-31) pg MCHC 33 (31-36) g/dl RDW 13 (10.5-15) % Plt Count 300 (150-450) 10^3/ul MPV 7 L (7.4-10.4) um3 Neut % (Auto) 77.0 (38-83) % Lymph % (Auto) 11.6 L (25-47) % [place] % (Auto) 6.1 (1-9) % Eos % (Auto) 4.8 (0-6) % Baso % (Auto) 0.5 (0-2) % Absolute Neuts (auto) 12.5 H (1.5-7.7) 10^3/ul Absolute Lymphs (auto) 1.9 (1.0-4.8) 10^3/ul Absolute Monos (auto) 1.0 H (0-0.8) 10^3/ul Absolute Eos (auto) 0.8 H (0-0.6) 10^3/ul Absolute Basos (auto) 0.1 (0-0.2) 10^3/ul Absolute Nucleated RBC 0 10^3/ul Nucleated RBC % 0 INR (Anticoag Therapy) (0.77-1.02) Sodium 133 (133-145) mmol/L Potassium 3.9 (3.5-5.0) mmol/L Chloride 102 (101-111) mmol/L Carbon Dioxide 25 (22-32) mmol/L Anion Gap 6 (2-11) mmol/L BUN 14 (6-24) mg/dL Creatinine 0.73 (0.51-0.95) mg/dL Est GFR ( Amer) 103.6 (>60) Est GFR (Non-Af Amer) 80.5 (>60) BUN/Creatinine Ratio 19.2 (8-20) Glucose 122 H (70-100) mg/dL Calcium 8.6 (8.6-10.3) mg/dL Total Bilirubin (0.2-1.0) mg/dL AST (13-39) U/L ALT (7-52) U/L Alkaline Phosphatase (34-104) U/L Total Protein (6.4-8.9) g/dL Albumin (3.2-5.2) g/dL Globulin (2-4) g/dL Albumin/Globulin Ratio (1-3) Urine Color Yellow Urine Appearance Clear Urine pH 6.0 (5-9) Ur Specific [place] 1.014 (1.010-1.030) Urine Protein Negative (Negative) Urine Ketones Negative (Negative) Urine Blood Negative (Negative) Urine Nitrate Negative (Negative) Urine Bilirubin Negative (Negative) Urine Urobilinogen Negative (Negative) Ur Leukocyte Esterase 1+ H (Negative) Urine WBC (Auto) Trace(0-5/hpf) (Absent) Urine RBC (Auto) Absent (Absent) Ur Squamous Epith Cells Present H (Absent) Urine Bacteria Absent (Absent) Urine Glucose Negative (Negative) CXR, personally reviewed: IMPRESSION: No evidence for pneumonia. US RLE DVT: IMPRESSION: No evidence for RIGHT lower extremity deep venous thrombosis. Impression: 62F 1 week s/p L mastectomy present with incisional infection DIAGNOSIS & PLAN Primary op-site infection : IV vancomycin & cefazolin : IVFs : wound CX : supportive care Secondary HX breast CA : continue anastrazole GERD : continue omeprazole Admission Rational: inpatient of op-site infection not anticipated to be adequately evaluated and controlled w/i 48h to allow for discharge DVTp: SCDs & heparin Code Status: full
[2017-08-04] MEDS: Docusate CAP* 100 MG PO SCH ×2 (10:27→20:11)
[2017-08-04] MEDS: Vancomycin(*) 1,000 MG in NS 0.9% 250 ML* 250 ML IVPB SCH ×2 (11:27→19:05)
[2017-08-04] MEDS: traMADol TAB* 50 MG PO PRN ×2 (14:17→22:08)
[2017-08-04] MEDS: Gabapentin CAP(*) 100 MG PO SCH (20:10)
[2017-08-04] MEDS ORDERED: CMCS - Anastrozole (NF) 1 MG TAB PO SCH (21:00)
[2017-08-05] MEDS: NS 0.9% 1000 ML* 1,000 ML IV SCH (03:18)
[2017-08-05] MEDS: Vancomycin(*) 1,000 MG in NS 0.9% 250 ML* 250 ML IVPB SCH ×2 (03:18→11:23)
[2017-08-05] MEDS: ceFAZolin 1 GM in Dextrose (*) 1 GM/50 ML BAG IVPB SCH ×2 (05:05→09:45)
[2017-08-05] MEDS ORDERED: Heparin VIAL(*) 5000 UNITS/ML VIAL (FIVE THOUSAND) SUBCUT SCH (06:00)
[2017-08-05 06:09] LABS: Hematocrit 37 % (35-47); Hemoglobin 12.5 g/dl (12.0-16.0); Mean Corpuscular HGB Conc 34 g/dl (31-36); Mean Corpuscular Hemoglobin 30 pg (27-31); Mean Corpuscular Volume 88 fL (80-97); Mean Platelet Volume 7 um3 (7.4-10.4); Red Blood Count 4.16 10^6/ul (4.0-5.4); Red Cell Distribution Width 13 % (10.5-15); White Blood Count 9.8 10^3/ul (3.5-10.8)
[2017-08-05 06:26] LABS: EGFR African American 116.3 (>60); EGFR Non-African American 90.5 (>60)
[2017-08-05] MEDS ORDERED: Omeprazole CAP* 20 MG PO SCH (07:30)
[2017-08-05] MEDS: Gabapentin CAP(*) 100 MG PO SCH (08:09)
[2017-08-05] MEDS: Docusate CAP* 100 MG PO SCH (08:09)
[2017-08-05] MEDS: traMADol TAB* 50 MG PO PRN (09:47)
[2017-08-05] MEDS ORDERED: Vancomycin Trough Check NOTE FOLLOW UP ONE (10:30)
[2017-08-05 11:36] VITALS: BP 118/53
--- NOTE | 2017-08-05 12:59 | PN ---
Progress Note - Progress Note Date of Service: 08/05/17 SOAP: Subjective: Pt seen and examined. Doing well. Some L chest pain. Tolerating diet Objective: af vss a and o x3 Chest: intact incision with erythema at midportion. no drainage at incision, no fluctuence. MORGAN: serous Micro reviewed Labs noted; wbc<10k Assessment: POD8 L mastectomy, SSI improving Plan: D/c home change to doxycycline f/u in office tomorrow- pt has appointment already
== END 2017-08-05 15:16 | disposition home or self-care (01) | DRG 721 ==
LOC: ED 20:29 → SSU 08-04 01:46
PROVIDERS: ADMIT Hospitalist; ATTEND Surgery
DX: T81.4XXA Infection following a procedure, initial encounter (principal); C50.911 Malignant neoplasm of unspecified site of right female breast; B99.9 Unspecified infectious disease; K21.9 Gastro-esophageal reflux disease without esophagitis; Z90.13 Acquired absence of bilateral breasts and nipples
CPT/HCPCS: 36415; 71020; 80048; 80053; 80202; 81003; 81015; 82565; 84520; 85025; 85610; 87040; 87070; 87077; 87086; 87186; 87205; 87640; 87641; A9270-GY; J0690; J1644; J3370